=== PATIENT | female | born 1930 | race American Indian/Alaskan Native ===

== ENCOUNTER 2018-07-07 13:01 | Inpatient (IN) | payer MEDICARE ==
[2018-07-07] MEDS ORDERED: ZOFRAN ODT PO ONE (13:23)
[2018-07-07] MEDS ORDERED: ZOFRAN ODT ONE (13:23)
[2018-07-07] MEDS ORDERED: NACL 0.9% 1000 ML 1,000 ML IV ONE (13:24)
[2018-07-07 14:03] LABS: Hematocrit 36.8 % (30.3-42.9); Hemoglobin 12.5 gm/dl (10.1-14.3); Mean Corpuscular HGB Conc 34 % (30-34); Mean Corpuscular Volume 89 fl (79-97); Platelet Count 196 K/mm3 (140-440); Red Blood Count 4.15 M/mm3 (3.65-5.03); Red Cell Distribution Width 15.6 % (13.2-15.2)
[2018-07-07 14:24] LABS: Albumin 4.2 g/dL (3.9-5); Calcium 9.3 mg/dL (8.4-10.2)
[2018-07-07] MEDS ORDERED: ZOFRAN IV ONE (14:56)
[2018-07-07] MEDS ORDERED: NACL 0.9% 250ML 250 ML IV ONE (14:56)
[2018-07-07] MEDS ORDERED: PEPCID IV ONE (14:56)
[2018-07-07 14:57] LABS: Platelet Estimate Consistent w Auto; RBC Morphology Normal; Total Cells Counted 100
--- NOTE | 2018-07-07 14:57 | Emergency Department Report ---
ED General Adult HPI - General Chief complaint: Nausea/Vomiting/Diarrhea Stated complaint: N/V Time Seen by Provider: 07/07/18 14:45 Source: patient, family, RN notes reviewed Mode of arrival: Ambulatory Limitations: No Limitations, Other (patient is a poor historian) - History of Present Illness Initial comments: This is an 88-year-old female. The patient is not known to this provider previously. She cannot recall the name of her primary care doctor. She believes her oncologist is Dr. Mercedes, at [facility]. She cannot recall the name of her welfare case worker. She reports a history of hypertension, bone cancer, reportedly in remission, not currently on chemotherapy or radiation therapy. Also has a ventricular pacemaker. She is not sure why it was placed. The patient typically gets her medical care at [facility]. She presents to the emergency room with a complaint of nausea and vomiting. She thinks it started this morning. It is intermittent. It is associated with abdominal cramping. It does not radiate anywhere. She reports that she felt like she was perspiring earlier on today. She reports cough, weakness, diz ziness. She denies headache, neck pain, chest pain, and denies urinary symptoms and denies focal extremity weakness, numbness. As far she can recall, this has not happened to her in the past. -: Gradual Severity scale (0 -10): 0 Consistency: intermittent Improves with: none Worsens with: none Associated Symptoms: cough, fever/chills, loss of appetite, malaise, nausea/vomiting, weakness. denies: confusion, chest pain, diaphoresis, headaches, rash, seizure, shortness of breath, syncope - Related Data Allergies Allergy/AdvReac Type Severity Reaction Status Date / Time No Known Allergies Allergy Verified 07/07/18 13:03 ED Review of Systems ROS: Stated complaint: N/V Other details as noted in HPI Constitutional: malaise Eyes: denies: eye discharge Respiratory: cough Cardiovascular: denies: chest pain Gastrointestinal: nausea, vomiting Genitourinary: denies: dysuria Musculoskeletal: denies: back pain Skin: denies: lesions Neurological: weakness Psychiatric: anxiety ED Past Medical Hx - Past Medical History Hx Hypertension: Yes Additional medical history: bone ca- in remission now, elevated cholesterol, - Surgical History Hx Internal Defibrillator: Yes (pacemaker) - Social History Smoking Status: Never Smoker Substance Use Type: None ED Physical Exam - General Limitations: No Limitations General appearance: alert, anxious - Head Head exam: Present: atraumatic, normocephalic - Eye Eye exam: Present: normal appearance, EOMI. Absent: nystagmus - ENT ENT exam: Present: mucous membranes moist - Neck Neck exam: Present: normal inspection, full ROM. Absent: tenderness, meningismus - Respiratory Respiratory exam: Present: rhonchi (rhonchi noted in the right lower lung field). Absent: respiratory distress - Cardiovascular Cardiovascular Exam: Present: normal rhythm. Absent: bradycardia, tachycardia, irregular rhythm, diastolic murmur, rubs, gallop - GI/Abdominal GI/Abdominal exam: Present: soft, tenderness, other (there is mild abdominal tenderness, diffusely, with no rebound, guarding or peritoneal signs, there is negative Spaulding sign, there is negative Rovsing sign). Absent: distended, guarding, rebound, rigid, pulsatile mass - Extremities Exam Extremities exam: Present: normal inspection, full ROM, other (2+ pulses noted in the bilateral upper, lower extremities. Compartments soft. No long bony tenderness. The pelvis is stable.). Absent: calf tenderness - Back Exam Back exam: Present: normal inspection, full ROM. Absent: paraspinal tenderness, vertebral tenderness - Neurological Exam Neurological exam: Present: alert, other (Extraocular movements intact. Tongue midline. No facial droop. Facial sensation intact to light touch in the V1, V2, V3 distribution bilaterally. 5 and 5 strength in 4 extremities.. Sensation is intact to light touch in 4 extremities.). Absent: motor sensory deficit - Psychiatric Psychiatric exam: Present: anxious - Skin Skin exam: Present: warm, dry, intact, normal color. Absent: rash ED Course Vital Signs 07/07/18 07/07/18 07/07/18 13:19 14:53 14:58 Temperature 97.8 F 97.5 F L Pulse Rate 64 83 77 Pulse Rate [ Anterior Bilateral Throughout] Respiratory 20 19 16 Rate Respiratory Rate [Anterior Bilateral Throughout] Blood Pressure 191/95 188/104 Blood Pressure 148/83 [Left] O2 Sat by Pulse 100 94 93 Oximetry 07/07/18 07/07/18 16:55 17:54 Temperature Pulse Rate 84 Pulse Rate [ 86 Anterior Bilateral Throughout] Respiratory 19 Rate Respiratory 22 Rate [Anterior Bilateral Throughout] Blood Pressure Blood Pressure 172/92 [Left] O2 Sat by Pulse 100 Oximetry - Reevaluation(s) Reevaluation #1: 07/07/18 15:39 Differential diagnosis, including not limited to: Intra-abdominal infection, pneumonia, urinary tract infection, acute coronary syndrome, intracranial lesion, deconditioning, GERD, gastritis Assessment and plan: 88-year-old female, complaint of weakness, nausea, vomiting. Patient is afebrile and hypertensive, although now improved. We will attempt to obtain old medical records from [facility], we have sent a faxed request for these medical records, and we are still waiting for them to arrive. We will obtain urinalysis, rectal temperature, CT scan of the abdomen and pelvis, and brain. We will reassess after data points have resulted. Question early pneumonia on x-ray the chest, may be related to technique, this should be better visualized on CT scan of the abdomen and pelvis, which showed visualized the lung bases. Reevaluation #2: 07/07/18 16:[address] scan right now. [facility] indicates they do not not have any records for this patient. Reevaluation #3: 07/07/18 17:09 CT scan of the brain is negative for acute disease. X-ray of the chest interpreted formally for emphysematous changes. Patient had CT scan of the abdomen and pelvis. After she got back, she apparently desaturated, began to complain of weakness, and shortness of breath. She was found to be hypoxic with a pulse ox in the 70s. Placed on a nonrebreather, improved to the mid 80s. Started on BiPAP therapy, O2 sat improved to 95%. Given albuterol, Atrovent and steroids. Tolerating BiPAP adequately at this time. Dr. Valladares to admit for presumed COPD exacerbation, nausea, vomiting, weakness. Extensive discussion however patient's family. They currently do not have goals of care in place. They do not have advanced directives. They are amenable to hospitalization. The patient's primary care doctor/welfare case worker recently . He was at [facility]. As per family, patient was medical care, between [facility], and [facility] at [facility] Reevaluation #4: 07/07/18 19:56 Patient look improved on BiPAP therapy. ED Medical Decision Making - Lab Data Result diagrams: 07/07/18 13:39 07/07/18 13:39 Vital Signs 07/07/18 07/07/18 13:19 14:58 Temperature 97.8 F 97.5 F L Pulse Rate 64 77 Respiratory 20 16 Rate Blood Pressure 191/95 Blood Pressure 148/83 [Left] O2 Sat by Pulse 100 93 Oximetry Lab Results 07/07/18 07/07/18 Range/Units 13:39 13:39 WBC 13.3 H (4.5-11.0) K/mm3 RBC 4.15 (3.65-5.03) M/mm3 Hgb 12.5 (10.1-14.3) gm/dl Hct 36.8 (30.3-42.9) % MCV 89 (79-97) fl MCH 30 (28-32) pg MCHC 34 (30-34) % RDW 15.6 H (13.2-15.2) % Plt Count 196 (140-440) K/mm3 Eos % (Auto) Client Hr Manager Add Manual Diff Complete Total Counted 100 Seg Neuts % (Manual) 62.0 (40.0-70.0) % Band Neutrophils % 0 % Lymphocytes % (Manual) 31.0 (13.4-35.0) % Reactive Lymphs % (Man) 0 % Monocytes % (Manual) 2.0 (0.0-7.3) % Eosinophils % (Manual) 3.0 (0.0-4.3) % Basophils % (Manual) 2.0 H (0.0-1.8) % Metamyelocytes % 0 % Myelocytes % 0 % Promyelocytes % 0 % Blast Cells % 0 % Nucleated RBC % Not Reportable Seg Neutrophils # Man 8.2 H (1.8-7.7) K/mm3 Band Neutrophils # 0.0 K/mm3 Lymphocytes # (Manual) 4.1 (1.2-5.4) K/mm3 Abs React Lymphs (Man) 0.0 K/mm3 Monocytes # (Manual) 0.3 (0.0-0.8) K/mm3 Eosinophils # (Manual) 0.4 (0.0-0.4) K/mm3 Basophils # (Manual) 0.3 H (0.0-0.1) K/mm3 Metamyelocytes # 0.0 K/mm3 Myelocytes # 0.0 K/mm3 Promyelocytes # 0.0 K/mm3 Blast Cells # 0.0 K/mm3 WBC Morphology Not Reportable Hypersegmented Neuts Not Reportable Hyposegmented Neuts Not Reportable Hypogranular Neuts Not Reportable Smudge Cells Not Reportable Toxic Granulation Not Reportable Toxic Vacuolation Not Reportable Dohle Bodies Not Reportable Pelger-Huet Anomaly Not Reportable Jesse Rods Not Reportable Platelet Estimate Consistent w auto Clumped Platelets Not Reportable Plt Clumps, EDTA Not Reportable Large Platelets Not Reportable Giant Platelets Not Reportable Platelet Satelliting Not Reportable Plt Morphology Comment Not Reportable RBC Morphology Normal Dimorphic RBCs Not Reportable Polychromasia Not Reportable Hypochromasia Not Reportable Poikilocytosis Not Reportable Anisocytosis Not Reportable Microcytosis Not Reportable Macrocytosis Not Reportable Spherocytes Not Reportable Pappenheimer Bodies Not Reportable Sickle Cells Not Reportable Target Cells Not Reportable Tear Drop Cells Not Reportable Ovalocytes Not Reportable Helmet Cells Not Reportable Vazquez-Owasso Bodies Not Reportable [place] Rings Not Reportable Neel Cells Not Reportable Bite Cells Not Reportable Crenated Cell Not Reportable Elliptocytes Not Reportable Acanthocytes (Spur) Not Reportable Rouleaux Not Reportable Hemoglobin C Crystals Not Reportable Schistocytes Not Reportable Malaria parasites Not Reportable Howard Bodies Not Reportable Hem Pathologist Commnt No Sodium 137 (137-145) mmol/L Potassium 4.6 (3.6-5.0) mmol/L Chloride 101.3 (98-107) mmol/L Carbon Dioxide 29 (22-30) mmol/L Anion Gap 11 mmol/L BUN 15 (7-17) mg/dL Creatinine 0.9 (0.7-1.2) mg/dL Estimated GFR 59 ml/min BUN/Creatinine Ratio 17 % Glucose 159 H (65-100) mg/dL Calcium 9.3 (8.4-10.2) mg/dL Total Bilirubin 0.40 (0.1-1.2) mg/dL AST 20 (5-40) units/L ALT 13 (7-56) units/L Alkaline Phosphatase 53 (35-129) units/L Total Protein 7.6 (6.3-8.2) g/dL Albumin 4.2 (3.9-5) g/dL Albumin/Globulin Ratio 1.2 % Lipase 27 (13-60) units/L - EKG Data -: EKG Interpreted by Me - EKG Data When compared to previous EKG there are: previous EKG unavailable 07/07/18 15:40 This is a ventricular paced rhythm, with an extreme right axis deviation, good ventricular capture, QTC prolonged, not having chest pain, not consistent with ST elevation myocardial infarction. There is no prior for comparison - Radiology Data Radiology results: report reviewed, image reviewed interpreted by me: X-ray of the chest shows hyperinflated lungs, left-sided ventricular pacer, question early right peripheral pneumonia Print Report Referring Physician: ODALIS BRANDON Patient Name: CECILIA CALIXTO Date of : 1930 Sex: Female Report Date: 2018-07-07 Report Status: Finalized Findings [facility] [address] [place] [address] Cat Scan Report Signed Patient: CECILIA CALIXTO MR#: [id number] : 1930 Acct:[id number] Age/Sex: 88 / F ADM Date: 07/07/18 Loc: ED Attending Dr: Ordering Physician: ODALIS BRANDON MD Date of Service: 07/07/18 Procedure(s): CT abdomen pelvis w con Accession Number(s): [id number] cc: ODALIS BRANDON MD PROCEDURE: CT ABDOMEN PELVIS W CON TECHNIQUE: Computerized axial tomography of the abdomen and pelvis was performed without intravenous contrast. This study is performed without intravascular contrast material and its sensitivity for abdominal and pelvic pathology, including neoplasms, inflammation, abscess, free fluid, thrombosis, arterial dissection and infarction, is reduced compared with a contrast enhanced study. HISTORY: abd pain n/v COMPARISONS: None . FINDINGS: Lower Lung franco: There are diffuse groundglass densities seen in both lower lobes. This is fairly extensive. I cannot exclude infiltrates edema or fibrosis. There is irregular pleural thickening on the right. On image #1 series 181 there is a oval nodular density seen adjacent to the major fissure. This measures approximately 1.5 cm cyst. The entire nodule is not visualized. It could represent loculated fluid in the major fissure. A small mass cannot be excluded. There are linear bands of at electasis or scarring seen in the right middle lobe. Cardiac leads visualized in the right side of the heart. Upper Abdomen: Calcified granulomas are scattered in the liver and spleen. Small hiatal hernia is visualized. The adrenal glands are unremarkable. The pancreas appears atrophied and otherwise unremarkable. Kidneys, Ureters and Urinary bladder: There is moderate irregular thinning of the renal cortex of the third right kidney suggesting a parenchymal scar. Subcentimeter renal cortical cysts appear to be visualized bilaterally. No definite solid masses are seen. No renal calculi are visualized. There is no hydronephrosis or ureteral calculi identified. The urinary bladder is unremarkab le. Retroperitoneum: Atherosclerotic changes are seen in the abdominal aorta. No aneurysm is visualized. Nonspecific subcentimeter lymph nodes are seen in the retroperitoneum. No pathologically enlarged lymph nodes are identified. Bowel: Minimal ascites collected in the lower pelvis posteriorly. I do not see evidence of bowel obstruction. No focal bowel abnormalities are identified. Normal-appearing appendix is seen in the right lower quadrant. There is mild hazy increased density in the mesentery in the upper abdomen. There is a thin band of increased density surrounding the hazy density. There are a few nonspecific subcentimeter lymph nodes visualized. The appearance suggests mesenteric adenitis. This is visualized on images 71-104 series 4 axial image. Reproductive organs: Uterus is surgically absent. No abnormal adnexal masses are identified. Other: No acute bone abnormalities are identified. Degenerative changes are seen in the upper lumbar spine. Contrast is seen refluxing into the inferior vena cava and intrahepatic veins. This can be seen with right heart strain, congestive failure and tricuspid insufficiency. IMPRESSION: Hazy groundglass density seen fairly extensively in the lower lobes as described. Please see above comments. Nodular density partially visualized in the region of the major fissure on the right. This could represent loculated fluid in the major fissure. I cannot exclude a solid mass. This is only partially visualized. Consider follow-up CT scan of the chest. There is additional irregular mild pleural plaquing right lower lung field laterally. Pa cemaker leads visualized right side of the heart. Small hiatal hernia is visualized. Mesenteric adenitis suspected upper abdomen as described. Prior granulomatous disease. Small cortical scar visualized right kidney. Small renal cortical cysts are also visualized. Prior hysterectomy. Minimal ascites visualized. This document is electronically signed by Ahmet Phillips MD., July 07 2018 06:08:14 PM ET Transcribed By: RED Dictated By: AHMET PHILLIPS MD Electronically Authenticated By: AHMET PHILLIPS MD Signed Date/Time: 07/07/18 1810 DD/ 1632 TD/TT: 07/07/18 1632 Repeat x-ray of the chest shows worsening pneumonia nt Report Referring Physician: ODALIS BRANDON Patient Name: CECILIA CALIXTO Date of : 1930 Sex: Female Report Date: 2018-07-07 Report Status: Finalized Findings [facility] [address] [place] [address] XRay Report Signed Patient: CECILIA CALIXTO MR#: [id number] : 1930 Acct:[id number] Age/Sex: 88 / F ADM Date: 07/07/18 Loc: ED Attending Dr: Ordering Physician: ODALIS BRANDON MD Date of Service: 07/07/18 Procedure(s): XR chest 1V ap Accession Number(s): [id number] cc: ODALIS BRANDON MD Fluoro Time In Minutes: PROCEDURE: XR CHEST 1V AP TECHNIQUE: Chest single AP HISTORY: repeatfor cp COMPARISONS: Correlated with today's earlier exam FINDINGS: There is increasing opacity within the right lower lobe distribution. Cardiac and mediastinal contours are unchanged. Mild blunting of the right costophrenic angle noted. Pacemaker/AICD noted. Pulmonary vasculature is unremarkable. IMPRESSION: Right lower lobe infiltrate increasing from prior exam. This document is electronically signed by David Alvares MD., July 07 2018 06:32:07 PM ET Transcribed By: ELLIOT Dictated By: JUSTIN ALVARES MD Electronically Authenticated By: JUSTIN ALVARES MD Signed Date/Time: 07/07/18 1834 DD/ 57 TD/TT: 07/07/181758 Critical Care Time: Yes Critical care time in (mins) excluding proc time.: 60 Critical care attestation.: If time is entered above; I have spent that time in minutes in the direct care of this critically ill patient, excluding procedure time. ED Disposition Clinical Impression: Nausea and vomiting Respiratory failure Qualifiers: Chronicity: acute Respiratory failure complication: hypoxia Qualified Code(s): J96.01 - Acute respiratory failure with hypoxia Disposition: DC-09 OP ADMIT IP TO THIS HOSP Is pt being admited?: Yes Condition: Fair
[2018-07-07 16:13] LABS: Bilirubin,Urine NEG (Negative); Blood,Urine NEG (Negative); Color,Urine Yellow (Yellow); Urobilinogen,Urine < 2.0 mg/dL (<2.0); WBC,Urine < 1.0 /HPF (0.0-6.0)
--- NOTE | 2018-07-07 16:30 | XRay Report ---
PROCEDURE: Chest. TECHNIQUE: Portable AP view. HISTORY: Weakness, rhonchi. COMPARISONS: None. FINDINGS: The heart size is normal. There is mild tortuosity of the thoracic aorta. The lungs are clear except for previous granulomatous disease. There is hyperinflation of the lungs consistent with COPD. There are no pleural effusions. There is a left-sided AICD device. There is some deformity of the right six th rib suggesting an old fracture. IMPRESSION: COPD. This document is electronically signed by Nestor Bravo MD., July 07 2018 04:28:21 PM ET
--- NOTE | 2018-07-07 16:38 | Cat Scan Report ---
PROCEDURE: CT HEAD/BRAIN WO CON TECHNIQUE: CT examination of the head without IV contrast HISTORY: dizzy weak n/v COMPARISONS: None FINDINGS: Cerebrovascular atherosclerotic calcification is present in the skull base arteries. No acute air-fluid level visualized in the included air-filled sinuses. Bone windows demonstrate no acute fracture. There is ventricular and sulcal prominence compatible with global cerebrocortical atrophy. Low attenuation regions in the cerebral white matter, while nonspecific, are present and usually attr ibuted to chronic ischemic gliosis. It can occur secondary to the normal aging process, hypertension, or arterial sclerotic vascular dise ase. The differential includes demyelination in the appropriate clinical setting. The brain contains no mass, mass effect, hemorrhage, or acute infarct. There is no extra-axial intracranial bleed or brain bleed. There is no midline shift. IMPRESSION: No acute CVA, intracranial bleed, or brain mass This document is electronically signed by Mariano Resendez MD., July 07 2018 04:36:50 PM ET
[2018-07-07] MEDS ORDERED: PROVENTIL IH ONE ×2 (16:45→16:47)
[2018-07-07] MEDS ORDERED: ATROVENT IH ONE (16:47)
[2018-07-07] MEDS ORDERED: SOLU-Medrol IV ONE (16:47)
--- NOTE | 2018-07-07 17:27 | History and Physical Report ---
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 Pt is lethargic at time of exam and is unable to provide history. Pt history provided by her , and family who are at bedside during exam and interview. As per family, the patient has experienced nausea, and multiple episodes of vomiting today. Pt family also report diaphoresis, and feeling weak all over. Pt family also reports that patient has bed stressed recently due to Pt transported to [facility] via private vehicle. Pt seen and evaluated in ED and found to have SIRS, Acidosis, And Acute Respiratory Failure suspected secondary to COPD exacerbation,as well as Encephalopathy. Pt is lethargic but is able to protect her airway. Pt initiated on NIPPV with improvement in symptoms. Pt admitted to IMCU. No prior admissions for review. No prior medication listed for reconciliation at time of exam. CT Abdomen/Pelvis pending at time of admission. Discussed care plan with family who acknowledge both understanding and agreement with plan. Oncology consulted in ED. Medical Records request for the patient sent to [facility] from ED. Past History Past Medical History: cancer, hypertension, hyperlipidemia, other (Cardiomyopathy) Past Surgical History: hysterectomy, Other (pacemaker) Social history: , lives with family. denies: smoking, alcohol abuse, prescription drug abuse Family history: hypertension Medications and Allergies Allergies Allergy/AdvReac Type Severity Reaction Status Date / Time No Known Allergies Allergy Verified 07/07/18 13:03 Review of Systems ROS unobtainable: due to mental status Exam - Constitutional Vitals: Temp Pulse Resp BP Pulse Ox 97.5 F L 86 22 148/83 93 07/07/18 14:58 07/07/18 16:55 07/07/18 16:55 07/07/18 14:58 07/07/18 14:58 General appearance: Present: mild distress - EENT Eyes: Present: PERRL ENT: hearing intact, clear oral mucosa - Neck Neck: Present: supple, normal ROM - Respiratory Respiratory effort: labored Respiratory: bilateral: diminished, rhonchi - Cardiovascular Heart Sounds: Present: S1 & S2. Absent: rub, click - Extremities Extremities: pulses symmetrical, No edema Peripheral Pulses: within normal limits - Abdominal General gastrointestinal: Present: soft, non-tender, non-distended, normal bowel sounds Female genitourinary: Present: normal - Integumentary Integumentary: Present: clear, warm, dry - Musculoskeletal Musculoskeletal: generalized weakness - Psychiatric Psychiatric: no appropriate mood/affect, no intact judgment & insight, no memory intact - Neurologic Neurologic: CNII-XII intact, no focal deficits, moves all extremities, no gait normal Results - Labs CBC & Chem 7: 07/07/18 13:39 07/07/18 13:39 Labs: Abnormal lab results 07/07/18 07/07/18 07/07/18 Range/Units 13:39 13:39 15:26 WBC 13.3 H (4.5-11.0) K/mm3 RDW 15.6 H (13.2-15.2) % Basophils % (Manual) 2.0 H (0.0-1.8) % Seg Neutrophils # Man 8.2 H (1.8-7.7) K/mm3 Basophils # (Manual) 0.3 H (0.0-0.1) K/mm3 Glucose 159 H (65-100) mg/dL Lactic Acid 2.10 H* (0.7-2.0) mmol/L Assessment and Plan - Patient Problems (1) Respiratory failure Current Visit: Yes Status: Acute Qualifiers: Chronicity: acute Respiratory failure complication: hypoxia Qualified Code(s): J96.01 - Acute respiratory failure with hypoxia Plan to address problem: Admit to IMCU: chest x ray, d dimer, bnp, pulse oximetry, ABG, supplemental oxygen, nebulizer therapy, pulmonary toilet, (2) COPD exacerbation Current Visit: Yes Status: Acute Plan to address problem: IV steroid therapy, supplemental oxygen, chest x ray, nebulizer therapy, pulse oximetry, ABG, d dimer, (3) Acidosis Current Visit: Yes Status: Acute Plan to address problem: IVF resuscitation, repeat lactic acid in AM. (4) SIRS (systemic inflammatory response syndrome) Current Visit: Yes Status: Acute Plan to address problem: CBC, CMP, IV antibiotic therapy, Lactic acid level, IVF resuscitation therapy, chest x ray, urialysis, blood cultures (5) Encephalopathy Current Visit: Yes Status: Acute Plan to address problem: CT head, neuro checks, seizure precautions, aspiration precautions, fall precautions, (6) Osteosarcoma Current Visit: Yes Status: Acute Plan to address problem: Oncology consulted, supportive care, (7) DVT prophylaxis Current Visit: Yes Status: Acute Plan to address problem: SCD to BLE while in bed, Prophylactic lovenox.
[2018-07-07] MEDS ORDERED: LEVAQUIN 500MG/100ML 500 MG/100 ML BAG IV ONE (17:52)
[2018-07-07] MEDS ORDERED: SODIUM CHLORIDE FLUSH SYRINGE 10 ML IV PRN (18:04)
[2018-07-07] MEDS ORDERED: PROVENTIL IH PRN (18:04)
--- NOTE | 2018-07-07 18:10 | Cat Scan Report ---
PROCEDURE: CT ABDOMEN PELVIS W CON TECHNIQUE: Computerized axial tomography of the abdomen and pelvis was performed without intravenous contrast. This study is performed without intravascular contrast material and its sensitivity for ab dominal and pelvic pathology, including neoplasms, inflammation, abscess, free fluid, thrombosis, art erial dissection and infarction, is reduced compared with a contrast enhanced study. HISTORY: abd pain n/v COMPARISONS: None . FINDINGS: Lower Lung franco: There are diffuse groundglass densities seen in both lower lobes. This is fairly extensive. I cannot exclude infiltrates edema or fibrosis. There is irregular pleural thickening on t he right. On image #1 series 181 there is a oval nodular density seen adjacent to the major fissure. This measures approximately 1.5 cm cyst. The entire nodule is not visualized. It could represent locu lated fluid in the major fissure. A small mass cannot be excluded. There are linear bands of atelecta sis or scarring seen in the right middle lobe. Cardiac leads visualized in the right side of the hear t. Upper Abdomen: Calcified granulomas are scattered in the liver and spleen. Small hiatal hernia is vi sualized. The adrenal glands are unremarkable. The pancreas appears atrophied and otherwise unremarka ble. Kidneys, Ureters and Urinary bladder: There is moderate irregular thinning of the renal cortex of th e third right kidney suggesting a parenchymal scar. Subcentimeter renal cortical cysts appear to be v isualized bilaterally. No definite solid masses are seen. No renal calculi are visualized. There is n o hydronephrosis or ureteral calculi identified. The urinary bladder is unremarkable. Retroperitoneum: Atherosclerotic changes are seen in the abdominal aorta. No aneurysm is visualized. Nonspecific subcentimeter lymph nodes are seen in the retroperitoneum. No pathologically enlarged ly mph nodes are identified. Bowel: Minimal ascites collected in the lower pelvis posteriorly. I do not see evidence of bowel obs truction. No focal bowel abnormalities are identified. Normal-appearing appendix is seen in the right lower quadrant. There is mild hazy increased density in the mesentery in the upper abdomen. There is a thin band of increased density surrounding the hazy density. There are a few nonspecific subcentim eter lymph nodes visualized. The appearance suggests mesenteric adenitis. This is visualized on image s [id number] series 4 axial image. Reproductive organs: Uterus is surgically absent. No abnormal adnexal masses are identified. Other: No acute bone abnormalities are identified. Degenerative changes are seen in the upper lumbar spine. Contrast is seen refluxing into the inferior vena cava and intrahepatic veins. This can be seen with right heart strain, congestive failure and tricuspid insufficiency. IMPRESSION: Hazy groundglass density seen fairly extensively in the lower lobes as described. Please see above co mments. Nodular density partially visualized in the region of the major fissure on the right. This could repr esent loculated fluid in the major fissure. I cannot exclude a solid mass. This is only partially vis ualized. Consider follow-up CT scan of the chest. There is additional irregular mild pleural plaquing right lower lung field laterally. Pacemaker leads visualized right side of the heart. Small hiatal hernia is visualized. Mesenteric adenitis suspected upper abdomen as described. Prior granulomatous disease. Small cortical scar visualized right kidney. Small renal cortical cysts are also visualized. Prior hysterectomy. Minimal ascites visualized. This document is electronically signed by Ahmet Leija MD., July 07 2018 06:08:14 PM ET
--- NOTE | 2018-07-07 18:34 | XRay Report ---
PROCEDURE: XR CHEST 1V AP TECHNIQUE: Chest single AP HISTORY: repeatfor cp COMPARISONS: Correlated with today's earlier exam FINDINGS: There is increasing opacity within the right lower lobe distribution. Cardiac and mediastinal contour s are unchanged. Mild blunting of the right costophrenic angle noted. Pacemaker/AICD noted. Pulmonary vasculature is unremarkable. IMPRESSION: Right lower lobe infiltrate increasing from prior exam. This document is electronically signed by David Alvares MD., July 07 2018 06:32:07 PM ET
[2018-07-07 19:46] LABS: Free T4 (Free Thyroxine) 0.95 ng/dL (0.76-1.46)
[2018-07-07] MEDS ORDERED: APRESOLINE IV PRN (21:26)
[2018-07-07] MEDS ORDERED: APRESOLINE ONE (21:31)
[2018-07-07] MEDS: ZITHROMAX 500 MG in NACL 0.9% 250ML 250 ML IV SCH (23:28)
[2018-07-07] MEDS: LOVENOX SUB-Q SCH (23:28)
[2018-07-07] MEDS: SODIUM CHLORIDE FLUSH SYRINGE 10 ML IV SCH (23:29)
[2018-07-08] MEDS: ZITHROMAX 500 MG in NACL 0.9% 250ML 250 ML IV SCH ×2 (10:33→15:39)
[2018-07-08] MEDS: SODIUM CHLORIDE FLUSH SYRINGE 10 ML IV SCH ×2 (10:34→21:12)
[2018-07-08] MEDS ORDERED: ZOFRAN IV PRN (12:20)
[2018-07-08] MEDS ORDERED: LASIX IV ONE (12:24)
--- NOTE | 2018-07-08 12:25 | Progress Note ---
Assessment and Plan Assessment and plan: 88F who pw n/v and deann hand oncologist is Dr Mercedes at [facility] Past medical history of bone cancer in remission, htn, sp v-PM, HLD Labs; white count 13 lactic acid 2.1, repeats after IV fluids 1.4, BNP 4000 and, d-dimer 491, ABG shows a PCO2 of 48, UA negative CT A/P; GG nodular densities in lower lobes of lungs, mesenteric adenitis is suspected in upper abdomen, repeat CXR; RLL infiltrate diagnosis/plan n/v; acute gastroenteritis -ivf, anti-emetics Pulmonary sepsis , PNA- antibiotics, COPD -d dimer elevated; obtain CTA to eval for PE and to look at bibasilar opacities CHF? give one dose of lasix, obtain echo sepsis with organ dysfunction acute metabolic encephalpathy dvt ppx- chemical History Interval history: Review of systems Constitutional: No fevers, no malaise, no joint pains CVS: No chest pain, no orthopnea, no dyspnea on exertion, no pedal edema GI: No abdominal pain, no diarrhea, no vomiting, no constipation Respiratory: No shortness of breath, no wheezing, no coughing Hospitalist Physical - Physical exam Narrative exam: General.: Appears well, no distress, nontoxic HEENT: Moist mucous membranes, extraocular muscles intact, no lymphadenopathy Neck: supple Cardiac: S1-S2 heard Lungs: By basilar Rales Abdomen: soft , nontender, nondistended, bowel sounds positive Extremities: no edema clubbing or cyanosis Skin: no rash or lesions Neurologic: no gross focal deficits Psych: calm, and cooperative - Constitutional Vitals: Temp Pulse Resp BP Pulse Ox 98.1 F 79 17 102/51 98 07/08/18 12:00 07/08/18 09:00 07/08/18 09:00 07/08/18 04:00 07/08/18 09:00 General appearance: Present: mild distress Results - Labs CBC & Chem 7: 07/07/18 13:39 07/07/18 13:39 Labs: Laboratory Last Values WBC 13.3 K/mm3 (4.5-11.0) H 07/07/18 13:39 RBC 4.15 M/mm3 (3.65-5.03) 07/07/18 13:39 Hgb 12.5 gm/dl (10.1-14.3) 07/07/18 13:39 Hct 36.8 % (30.3-42.9) 07/07/18 13:39 MCV 89 fl (79-97) 07/07/18 13:39 MCH 30 pg (28-32) 07/07/18 13:39 MCHC 34 % (30-34) 07/07/18 13:39 RDW 15.6 % (13.2-15.2) H 07/07/18 13:39 Plt Count 196 K/mm3 (140-440) 07/07/18 13:39 Eos % (Auto) Manager Drug 07/07/18 13:39 Add Manual Diff Complete 07/07/18 13:39 Total Counted 100 07/07/18 13:39 Seg Neuts % (Manual) 62.0 % (40.0-70.0) 07/07/18 13:39 Band Neutrophils % 0 % 07/07/18 13:39 Lymphocytes % (Manual) 31.0 % (13.4-35.0) 07/07/18 13:39 Reactive Lymphs % (Man) 0 % 07/07/18 13:39 Monocytes % (Manual) 2.0 % (0.0-7.3) 07/07/18 13:39 Eosinophils % (Manual) 3.0 % (0.0-4.3) 07/07/18 13:39 Basophils % (Manual) 2.0 % (0.0-1.8) H 07/07/18 13:39 Metamyelocytes % 0 % 07/07/18 13:39 Myelocytes % 0 % 07/07/18 13:39 Promyelocytes % 0 % 07/07/18 13:39 Blast Cells % 0 % 07/07/18 13:39 Nucleated RBC % Not Reportable 07/07/18 13:39 Seg Neutrophils # Man 8.2 K/mm3 (1.8-7.7) H 07/07/18 13:39 Band Neutrophils # 0.0 K/mm3 07/07/18 13:39 Lymphocytes # (Manual) 4.1 K/mm3 (1.2-5.4) 07/07/18 13:39 Abs React Lymphs (Man) 0.0 K/mm3 07/07/18 13:39 Monocytes # (Manual) 0.3 K/mm3 (0.0-0.8) 07/07/18 13:39 Eosinophils # (Manual) 0.4 K/mm3 (0.0-0.4) 07/07/18 13:39 Basophils # (Manual) 0.3 K/mm3 (0.0-0.1) H 07/07/18 13:39 Metamyelocytes # 0.0 K/mm3 07/07/18 13:39 Myelocytes # 0.0 K/mm3 07/07/18 13:39 Promyelocytes # 0.0 K/mm3 07/07/18 13:39 Blast Cells # 0.0 K/mm3 07/07/18 13:39 WBC Morphology Not Reportable 07/07/18 13:39 Hypersegmented Neuts Not Reportable 07/07/18 13:39 Hyposegmented Neuts Not Reportable 07/07/18 13:39 Hypogranular Neuts Not Reportable 07/07/18 13:39 Smudge Cells Not Reportable 07/07/18 13:39 Toxic Granulation Not Reportable 07/07/18 13:39 Toxic Vacuolation Not Reportable 07/07/18 13:39 Dohle Bodies Not Reportable 07/07/18 13:39 Pelger-Huet Anomaly Not Reportable 07/07/18 13:39 Jesse Rods Not Reportable 07/07/18 13:39 Platelet Estimate Consistent w auto 07/07/18 13:39 Clumped Platelets Not Reportable 07/07/18 13:39 Plt Clumps, EDTA Not Reportable 07/07/18 13:39 Large Platelets Not Reportable 07/07/18 13:39 Giant Platelets Not Reportable 07/07/18 13:39 Platelet Satelliting Not Reportable 07/07/18 13:39 Plt Morphology Comment Not Reportable 07/07/18 13:39 RBC Morphology Normal 07/07/18 13:39 Dimorphic RBCs Not Reportable 07/07/18 13:39 Polychromasia Not Reportable 07/07/18 13:39 Hypochromasia Not Reportable 07/07/18 13:39 Poikilocytosis Not Reportable 07/07/18 13:39 Anisocytosis Not Reportable 07/07/18 13:39 Microcytosis Not Reportable 07/07/18 13:39 Macrocytosis Not Reportable 07/07/18 13:39 Spherocytes Not Reportable 07/07/18 13:39 Pappenheimer Bodies Not Reportable 07/07/18 13:39 Sickle Cells Not Reportable 07/07/18 13:39 Target Cells Not Reportable 07/07/18 13:39 Tear Drop Cells Not Reportable 07/07/18 13:39 Ovalocytes Not Reportable 07/07/18 13:39 Helmet Cells Not Reportable 07/07/18 13:39 [place] Bodies Not Reportable 07/07/18 13:39 [place] Rings Not Reportable 07/07/18 13:39 Neel Cells Not Reportable 07/07/18 13:39 Bite Cells Not Reportable 07/07/18 13:39 Crenated Cell Not Reportable 07/07/18 13:39 Elliptocytes Not Reportable 07/07/18 13:39 Acanthocytes (Spur) Not Reportable 07/07/18 13:39 Rouleaux Not Reportable 07/07/18 13:39 Hemoglobin C Crystals Not Reportable 07/07/18 13:39 Schistocytes Not Reportable 07/07/18 13:39 Malaria parasites Not Reportable 07/07/18 13:39 Howard Bodies Not Reportable 07/07/18 13:39 Hem Pathologist Commnt No 07/07/18 13:39 D-Dimer 491.58 ng/mlDDU (0-234) H 07/07/18 18:53 POC ABG pH 7.336 (7.35-7.45) L 07/07/18 17:50 POC ABG pCO2 48.5 (35-45) H 07/07/18 17:50 POC ABG pO2 171 (80-105) H 07/07/18 17:50 POC ABG HCO3 26.0 (22-26 mml/L) 07/07/18 17:50 POC ABG Total CO2 27 (23-27mmol/L) 07/07/18 17:50 POC ABG O2 Sat 99 07/07/18 17:50 POC ABG Base Excess 0 ((-2) - (+3)mmol/L) 07/07/18 17:50 FiO2 70 % 07/07/18 17:50 Sodium 137 mmol/L (137-145) 07/07/18 13:39 Potassium 4.6 mmol/L (3.6-5.0) 07/07/18 13:39 Chloride 101.3 mmol/L (98-107) 07/07/18 13:39 Carbon Dioxide 29 mmol/L (22-30) 07/07/18 13:39 Anion Gap 11 mmol/L 07/07/18 13:39 BUN 15 mg/dL (7-17) 07/07/18 13:39 Creatinine 0.9 mg/dL (0.7-1.2) 07/07/18 13:39 Estimated GFR 59 ml/min 07/07/18 13:39 BUN/Creatinine Ratio 17 % 07/07/18 13:39 Glucose 159 mg/dL (65-100) H 07/07/18 13:39 Lactic Acid 1.30 mmol/L (0.7-2.0) 07/08/18 05:01 Calcium 9.3 mg/dL (8.4-10.2) 07/07/18 13:39 Magnesium 2.10 mg/dL (1.7-2.3) 07/07/18 15:26 Total Bilirubin 0.40 mg/dL (0.1-1.2) 07/07/18 13:39 AST 20 units/L (5-40) 07/07/18 13:39 ALT 13 units/L (7-56) 07/07/18 13:39 Alkaline Phosphatase 53 units/L (35-129) 07/07/18 13:39 Total Creatine Kinase 83 units/L (30-135) 07/07/18 15:26 Troponin T < 0.010 ng/mL (0.00-0.029) 07/07/18 17:25 NT-Pro-B Natriuret Pep 4455 pg/mL (0-900) H 07/07/18 18:53 Total Protein 7.6 g/dL (6.3-8.2) 07/07/18 13:39 Albumin 4.2 g/dL (3.9-5) 07/07/18 13:39 Albumin/Globulin Ratio 1.2 % 07/07/18 13:39 Lipase 27 units/L (13-60) 07/07/18 13:39 TSH 1.940 mlU/mL (0.270-4.200) 07/07/18 18:53 Free T4 0.95 ng/dL (0.76-1.46) 07/07/18 18:53 Urine Color Yellow (Yellow) 07/07/18 15:47 Urine Turbidity Clear (Clear) 07/07/18 15:47 Urine pH 6.0 (5.0-7.0) 07/07/18 15:47 Ur Specific [place] 1.020 (1.003-1.030) 07/07/18 15:47 Urine Protein 100 mg/dl mg/dL (Negative) 07/07/18 15:47 Urine Glucose (UA) 50 mg/dL (Negative) 07/07/18 15:47 Urine Ketones Tr mg/dL (Negative) 07/07/18 15:47 Urine Blood Neg (Negative) 07/07/18 15:47 Urine Nitrite Neg (Negative) 07/07/18 15:47 Urine Bilirubin Neg (Negative) 07/07/18 15:47 Urine Urobilinogen < 2.0 mg/dL (<2.0) 07/07/18 15:47 Ur Leukocyte Esterase Neg (Negative) 07/07/18 15:47 Urine WBC (Auto) < 1.0 /HPF (0.0-6.0) 07/07/18 15:47 Urine RBC (Auto) 11.0 /HPF (0.0-6.0) 07/07/18 15:47 U Epithel Cells (Auto) < 1.0 /HPF (0-13.0) 07/07/18 15:47 Active Medications - Current Medications Current Medications: Generic Name Dose Route Start Last Admin Trade Name Freq PRN Reason Stop Dose Admin Albuterol 2.5 mg 07/07/18 18:04 Proventil IH Q3HRT PRN Shortness Of Breath Enoxaparin Sodium 40 mg 07/07/18 22:00 07/07/18 23:28 Lovenox SUB-Q 40 mg QDAY@2200 NEVA Administration Hydralazine HCl 10 mg 07/07/18 21:26 07/07/18 21:35 Apresoline IV 10 mg Q4HR PRN Administration Blood Pressure Sodium Chloride 1,000 mls @ 125 mls/hr 07/08/18 13:00 Nacl 0.45% 1000 Ml IV DIRECT NEVA Ondansetron HCl 4 mg 07/08/18 12:20 Zofran IV Q4H PRN Nausea And Vomiting Sodium Chloride 10 ml 07/07/18 22:00 07/08/18 10:34 Sodium Chloride Flush Syringe 10 Ml IV 10 ml BID NEVA Administration Sodium Chloride 10 ml 07/07/18 18:04 Sodium Chloride Flush Syringe 10 Ml IV PRN PRN LINE FLUSH Nutrition/Malnutrition Assess - Dietary Evaluation Nutrition/Malnutrition Findings: Nutrition Notes Start: 07/08/18 10:28 Freq: Status: Active Protocol: Document 07/08/18 10:28 EB (Rec: 07/08/18 10:35 EB [id number]) Co-Sign 07/08/18 10:28 LP Nutrition Notes 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 Pt resting in bed at time of visit and complains of being thirsty and hungry. Pt brought to [facility] yesterday for procedure and starting vomiting while here. Since then has had N/V x7. 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 Percent of energy/protein needs met: 0%/0% Burn Absent Trauma Absent GI Symptoms Nausea,Vomiting Current % PO Negligible #1 Nutrition Diagnosis Inadequate oral intake Etiology NPO As Evidenced by Signs and Symptoms N/V x7 yesterday Is patient on ventilator? No Is Patient Ambulatory and/or Out of Bed Yes REE-([place]-St. Jeor-ambulatory/OOB) [ 1350.999 NUTR.[id number]] Kcal/Kg value to use for calculation 25 Approximate Energy Requirements Using 1588 kcal/Kg Calculation Used for Recommendations Kcal/kg Additional Notes PRO: 1-1.2 g/kg (64-77 g/day) Fluid: 1 mL/kcal Nutrition Intervention Change Diet Order: Cl liq when NPO status lifted Goal #1 Advance diet when medically feasible Goal #2 Meet at least 75% jose and pro needs Anticipated Discharge Needs: Unable to determine at this time Follow-Up By: 07/11/18 Additional Comments F/u: diet tolerance and advancement
[2018-07-08] MEDS ORDERED: PROVENTIL IH PRN (12:40)
[2018-07-08] MEDS: NACL 0.45% 1000 ML 1,000 ML IV SCH (12:54)
[2018-07-08] MEDS: SOLU-Medrol IV SCH ×2 (13:59→21:12)
[2018-07-08] MEDS: ROCEPHIN/NS 1 GM/50 ML 1 GM/50 ML BAG IV SCH (18:13)
--- NOTE | 2018-07-08 18:47 | Vascular Lab Report ---
PROCEDURE: VL VENOUS DUPLEX LE BILAT TECHNIQUE: Longitudinal and transverse grayscale, color, and Doppler sonographic images were perform ed from the bilateral groins to the infrapopliteal region HISTORY: LE edema COMPARISONS: None FINDINGS: The venous system is anechoic and fully compressible at all levels. Normal respiratory variability and augmentation. No popliteal cyst. IMPRESSION: No evidence for deep venous thrombosis bilateral lower extremity from the groins to the infrapoplitea l regions. No Alfonso's cyst.. This document is electronically signed by Carolynn Lopez MD., July 08 2018 06:45:57 PM ET
[2018-07-08] MEDS: LOVENOX SUB-Q SCH (21:11)
[2018-07-09] MEDS: NACL 0.45% 1000 ML 1,000 ML IV SCH ×2 (00:19→09:34)
[2018-07-09] MEDS: ROCEPHIN/NS 1 GM/50 ML 1 GM/50 ML BAG IV SCH (09:33)
[2018-07-09] MEDS: SOLU-Medrol IV SCH ×2 (09:34→22:43)
[2018-07-09] MEDS: SODIUM CHLORIDE FLUSH SYRINGE 10 ML IV SCH ×2 (09:39→22:43)
--- NOTE | 2018-07-09 09:59 | Progress Note ---
Assessment and Plan Assessment and plan: 88F who pw n/v and deann hand oncologist is Dr Mercedes at [facility] Past medical history of bone cancer in remission, htn, sp v-PM, HLD Labs; white count 13 lactic acid 2.1, repeats after IV fluids 1.4, BNP 4000 and, d-dimer 491, ABG shows a PCO2 of 48, UA negative CT A/P; GG nodular densities in lower lobes of lungs, mesenteric adenitis is suspected in upper abdomen, repeat CXR; RLL infiltrate diagnosis/plan n/v; acute gastrititis, self reports hx of pud -ivf, anti-emetics, PPI, gi consult Pulmonary pna and sepsis ruled out, dc abx COPD -d dimer elevated; CTA neg for PE or infiltrate, LE doppler neg for dvt CHF? sp lasix x 1, echo pending Afib sp V-PM, rate controlled acute metabolic encephalpathy- resolved dvt ppx- chemical History Interval history: Review of systems Constitutional: No fevers, no malaise, no joint pains CVS: No chest pain, no orthopnea, no dyspnea on exertion, no pedal edema GI: No abdominal pain, no diarrhea, , nuase is improved, no vomiting, no constipation Respiratory: No shortness of breath, no wheezing, no coughing Hospitalist Physical - Physical exam Narrative exam: General.: Appears well, no distress, nontoxic HEENT: Moist mucous membranes, extraocular muscles intact, no lymphadenopathy Neck: supple Cardiac: S1-S2 heard Lungs: By basilar Rales Abdomen: soft , nontender, nondistended, bowel sounds positive Extremities: no edema clubbing or cyanosis Skin: no rash or lesions Neurologic: no gross focal deficits Psych: calm, and cooperative - Constitutional Vitals: Temp Pulse Resp BP Pulse Ox 98 F 112 H 18 137/64 98 07/09/18 03:43 07/09/18 07:47 07/09/18 07:47 07/09/18 00:00 07/09/18 07:47 General appearance: Present: mild distress Results - Labs CBC & Chem 7: 07/07/18 13:39 07/07/18 13:39 Labs: Laboratory Last Values WBC 13.3 K/mm3 (4.5-11.0) H 07/07/18 13:39 RBC 4.15 M/mm3 (3.65-5.03) 07/07/18 13:39 Hgb 12.5 gm/dl (10.1-14.3) 07/07/18 13:39 Hct 36.8 % (30.3-42.9) 07/07/18 13:39 MCV 89 fl (79-97) 07/07/18 13:39 MCH 30 pg (28-32) 07/07/18 13:39 MCHC 34 % (30-34) 07/07/18 13:39 RDW 15.6 % (13.2-15.2) H 07/07/18 13:39 Plt Count 196 K/mm3 (140-440) 07/07/18 13:39 Eos % (Auto) Adjunct Professor 07/07/18 13:39 Add Manual Diff Complete 07/07/18 13:39 Total Counted 100 07/07/18 13:39 Seg Neuts % (Manual) 62.0 % (40.0-70.0) 07/07/18 13:39 Band Neutrophils % 0 % 07/07/18 13:39 Lymphocytes % (Manual) 31.0 % (13.4-35.0) 07/07/18 13:39 Reactive Lymphs % (Man) 0 % 07/07/18 13:39 Monocytes % (Manual) 2.0 % (0.0-7.3) 07/07/18 13:39 Eosinophils % (Manual) 3.0 % (0.0-4.3) 07/07/18 13:39 Basophils % (Manual) 2.0 % (0.0-1.8) H 07/07/18 13:39 Metamyelocytes % 0 % 07/07/18 13:39 Myelocytes % 0 % 07/07/18 13:39 Promyelocytes % 0 % 07/07/18 13:39 Blast Cells % 0 % 07/07/18 13:39 Nucleated RBC % Not Reportable 07/07/18 13:39 Seg Neutrophils # Man 8.2 K/mm3 (1.8-7.7) H 07/07/18 13:39 Band Neutrophils # 0.0 K/mm3 07/07/18 13:39 Lymphocytes # (Manual) 4.1 K/mm3 (1.2-5.4) 07/07/18 13:39 Abs React Lymphs (Man) 0.0 K/mm3 07/07/18 13:39 Monocytes # (Manual) 0.3 K/mm3 (0.0-0.8) 07/07/18 13:39 Eosinophils # (Manual) 0.4 K/mm3 (0.0-0.4) 07/07/18 13:39 Basophils # (Manual) 0.3 K/mm3 (0.0-0.1) H 07/07/18 13:39 Metamyelocytes # 0.0 K/mm3 07/07/18 13:39 Myelocytes # 0.0 K/mm3 07/07/18 13:39 Promyelocytes # 0.0 K/mm3 07/07/18 13:39 Blast Cells # 0.0 K/mm3 07/07/18 13:39 WBC Morphology Not Reportable 07/07/18 13:39 Hypersegmented Neuts Not Reportable 07/07/18 13:39 Hyposegmented Neuts Not Reportable 07/07/18 13:39 Hypogranular Neuts Not Reportable 07/07/18 13:39 Smudge Cells Not Reportable 07/07/18 13:39 Toxic Granulation Not Reportable 07/07/18 13:39 Toxic Vacuolation Not Reportable 07/07/18 13:39 Dohle Bodies Not Reportable 07/07/18 13:39 Pelger-Huet Anomaly Not Reportable 07/07/18 13:39 Jesse Rods Not Reportable 07/07/18 13:39 Platelet Estimate Consistent w auto 07/07/18 13:39 Clumped Platelets Not Reportable 07/07/18 13:39 Plt Clumps, EDTA Not Reportable 07/07/18 13:39 Large Platelets Not Reportable 07/07/18 13:39 Giant Platelets Not Reportable 07/07/18 13:39 Platelet Satelliting Not Reportable 07/07/18 13:39 Plt Morphology Comment Not Reportable 07/07/18 13:39 RBC Morphology Normal 07/07/18 13:39 Dimorphic RBCs Not Reportable 07/07/18 13:39 Polychromasia Not Reportable 07/07/18 13:39 Hypochromasia Not Reportable 07/07/18 13:39 Poikilocytosis Not Reportable 07/07/18 13:39 Anisocytosis Not Reportable 07/07/18 13:39 Microcytosis Not Reportable 07/07/18 13:39 Macrocytosis Not Reportable 07/07/18 13:39 Spherocytes Not Reportable 07/07/18 13:39 Pappenheimer Bodies Not Reportable 07/07/18 13:39 Sickle Cells Not Reportable 07/07/18 13:39 Target Cells Not Reportable 07/07/18 13:39 Tear Drop Cells Not Reportable 07/07/18 13:39 Ovalocytes Not Reportable 07/07/18 13:39 Helmet Cells Not Reportable 07/07/18 13:39 Vaz[place] Bodies Not Reportable 07/07/18 13:39 [place] Rings Not Reportable 07/07/18 13:39 [place] Cells Not Reportable 07/07/18 13:39 Bite Cells Not Reportable 07/07/18 13:39 Crenated Cell Not Reportable 07/07/18 13:39 Elliptocytes Not Reportable 07/07/18 13:39 Acanthocytes (Spur) Not Reportable 07/07/18 13:39 Rouleaux Not Reportable 07/07/18 13:39 Hemoglobin C Crystals Not Reportable 07/07/18 13:39 Schistocytes Not Reportable 07/07/18 13:39 Malaria parasites Not Reportable 07/07/18 13:39 Howard Bodies Not Reportable 07/07/18 13:39 Hem Pathologist Commnt No 07/07/18 13:39 D-Dimer 491.58 ng/mlDDU (0-234) H 07/07/18 18:53 POC ABG pH 7.336 (7.35-7.45) L 07/07/18 17:50 POC ABG pCO2 48.5 (35-45) H 07/07/18 17:50 POC ABG pO2 171 (80-105) H 07/07/18 17:50 POC ABG HCO3 26.0 (22-26 mml/L) 07/07/18 17:50 POC ABG Total CO2 27 (23-27mmol/L) 07/07/18 17:50 POC ABG O2 Sat 99 07/07/18 17:50 POC ABG Base Excess 0 ((-2) - (+3)mmol/L) 07/07/18 17:50 FiO2 70 % 07/07/18 17:50 Sodium 137 mmol/L (137-145) 07/07/18 13:39 Potassium 4.6 mmol/L (3.6-5.0) 07/07/18 13:39 Chloride 101.3 mmol/L (98-107) 07/07/18 13:39 Carbon Dioxide 29 mmol/L (22-30) 07/07/18 13:39 Anion Gap 11 mmol/L 07/07/18 13:39 BUN 15 mg/dL (7-17) 07/07/18 13:39 Creatinine 0.9 mg/dL (0.7-1.2) 07/07/18 13:39 Estimated GFR 59 ml/min 07/07/18 13:39 BUN/Creatinine Ratio 17 % 07/07/18 13:39 Glucose 159 mg/dL (65-100) H 07/07/18 13:39 Lactic Acid 1.30 mmol/L (0.7-2.0) 07/08/18 05:01 Calcium 9.3 mg/dL (8.4-10.2) 07/07/18 13:39 Magnesium 2.10 mg/dL (1.7-2.3) 07/07/18 15:26 Total Bilirubin 0.40 mg/dL (0.1-1.2) 07/07/18 13:39 AST 20 units/L (5-40) 07/07/18 13:39 ALT 13 units/L (7-56) 07/07/18 13:39 Alkaline Phosphatase 53 units/L (35-129) 07/07/18 13:39 Total Creatine Kinase 83 units/L (30-135) 07/07/18 15:26 Troponin T < 0.010 ng/mL (0.00-0.029) 07/07/18 17:25 NT-Pro-B Natriuret Pep 4455 pg/mL (0-900) H 07/07/18 18:53 Total Protein 7.6 g/dL (6.3-8.2) 07/07/18 13:39 Albumin 4.2 g/dL (3.9-5) 07/07/18 13:39 Albumin/Globulin Ratio 1.2 % 07/07/18 13:39 Lipase 27 units/L (13-60) 07/07/18 13:39 TSH 1.940 mlU/mL (0.270-4.200) 07/07/18 18:53 Free T4 0.95 ng/dL (0.76-1.46) 07/07/18 18:53 Urine Color Yellow (Yellow) 07/07/18 15:47 Urine Turbidity Clear (Clear) 07/07/18 15:47 Urine pH 6.0 (5.0-7.0) 07/07/18 15:47 Ur Specific [place] 1.020 (1.003-1.030) 07/07/18 15:47 Urine Protein 100 mg/dl mg/dL (Negative) 07/07/18 15:47 Urine Glucose (UA) 50 mg/dL (Negative) 07/07/18 15:47 Urine Ketones Tr mg/dL (Negative) 07/07/18 15:47 Urine Blood Neg (Negative) 07/07/18 15:47 Urine Nitrite Neg (Negative) 07/07/18 15:47 Urine Bilirubin Neg (Negative) 07/07/18 15:47 Urine Urobilinogen < 2.0 mg/dL (<2.0) 07/07/18 15:47 Ur Leukocyte Esterase Neg (Negative) 07/07/18 15:47 Urine WBC (Auto) < 1.0 /HPF (0.0-6.0) 07/07/18 15:47 Urine RBC (Auto) 11.0 /HPF (0.0-6.0) 07/07/18 15:47 U Epithel Cells (Auto) < 1.0 /HPF (0-13.0) 07/07/18 15:47 Active Medications - Current Medications Current Medications: Generic Name Dose Route Start Last Admin Trade Name Freq PRN Reason Stop Dose Admin Albuterol 2.5 mg 07/08/18 12:40 07/08/18 21:14 Proventil IH 2.5 mg Q6HRT PRN Administration Shortness Of Breath Enoxaparin Sodium 40 mg 07/07/18 22:00 07/08/18 21:11 Lovenox SUB-Q 40 mg QDAY@2200 NEVA Administration Hydralazine HCl 10 mg 07/07/18 21:26 07/07/18 21:35 Apresoline IV 10 mg Q4HR PRN Administration Blood Pressure Sodium Chloride 1,000 mls @ 125 mls/hr 07/08/18 13:00 07/09/18 09:34 Nacl 0.45% 1000 Ml IV 125 mls/hr DIRECT NEVA Administration Azithromycin 500 mg/ Sodium 250 mls @ 250 mls/hr 07/08/18 15:00 07/08/18 15:39 Chloride IV Not Given Q24HR NEVA Ceftriaxone Sodium 1 gm in 50 mls @ 100 mls/hr 07/08/18 15:00 07/09/18 09:33 Rocephin/Ns 1 Gm/50 Ml IV 100 mls/hr Q24HR NEVA Administration Protocol Methylprednisolone Sodium Succinate 40 mg 07/08/18 13:00 07/09/18 09:34 Solu-Medrol IV 40 mg BID NEVA Administration Ondansetron HCl 4 mg 07/08/18 12:20 07/09/18 06:55 Zofran IV 4 mg Q4H PRN Administration Nausea And Vomiting Sodium Chloride 10 ml 07/07/18 22:00 07/09/18 09:39 Sodium Chloride Flush Syringe 10 Ml IV 10 ml BID NEVA Administration Sodium Chloride 10 ml 07/07/18 18:04 Sodium Chloride Flush Syringe 10 Ml IV PRN PRN LINE FLUSH Nutrition/Malnutrition Assess - Dietary Evaluation Nutrition/Malnutrition Findings: Nutrition Notes Start: 07/08/18 10:28 Freq: Status: Active Protocol: Document 07/08/18 10:28 EB (Rec: 07/08/18 10:35 EB [id number]) Co-Sign 07/08/18 10:28 LP Nutrition Notes 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 Pt resting in bed at time of visit and complains of being thirsty and hungry. Pt brought to [facility] yesterday for procedure and starting vomiting while here. Since then has had N/V x7. 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 Percent of energy/protein needs met: 0%/0% Burn Absent Trauma Absent GI Symptoms Nausea,Vomiting Current % PO Negligible #1 Nutrition Diagnosis Inadequate oral intake Etiology NPO As Evidenced by Signs and Symptoms N/V x7 yesterday Is patient on ventilator? No Is Patient Ambulatory and/or Out of Bed Yes REE-([facility]-ambulatory/OOB) [ 1350.999 NUTR.MSJOOB] Kcal/Kg value to use for calculation 25 Approximate Energy Requirements Using 1588 kcal/Kg Calculation Used for Recommendations Kcal/kg Additional Notes PRO: 1-1.2 g/kg (64-77 g/day) Fluid: 1 mL/kcal Nutrition Intervention Change Diet Order: Cl liq when NPO status lifted Goal #1 Advance diet when medically feasible Goal #2 Meet at least 75% jose and pro needs Anticipated Discharge Needs: Unable to determine at this time Follow-Up By: 07/11/18 Additional Comments F/u: diet tolerance and advancement
--- NOTE | 2018-07-09 10:30 | Cat Scan Report ---
EXAM: CT ANGIO CHEST HISTORY: GG opacities seen on xray TECHNIQUE: Spiral axial CT images with sagittal and coronal reformatted images are obtained through the chest with the administration of intravenous contrast. DOSIMETRY: Total DLP: 454.4 mGycm COMPARISON: None available. FINDINGS: CARDIOVASCULAR: There is no evidence for pulmonary embolic disease. There is a left anterior chest wa ll subclavian cardiac pacer with intact pacer wires to the right atrium and right ventricle. The hear t size and mediastinal vascular structures are within normal limits. There is no significant aortic or coronary atherosclerosis seen. No thoracic aortic aneurysm or dissection is noted. MEDIASTINUM AND ZARINA: No mass lesion, lymphadenopathy, emphysema, or abnormal fluid collection is see n. LUNGS: There are small bilateral pleural effusions. There is mild increased opacity in the posterior/ dependent lower lobes in keeping with mild atelectasis and/or congestive changes. There is no acute p arenchymal infiltrate, lung nodule, endobronchial obstructing lesion or pneumothorax seen. CHEST WALL: There are no chest wall lesions seen. There is severe DDD at T12/L1, marked by severe dis c space narrowing, endplate sclerosis, and anterior and posterior marginal osteophytosis, contributin g to moderately severe spinal canal stenosis with potential for neural impingements. The visualized b kennedy structures are within normal limits. No axillary lymphadenopathy is noted. UPPER ABDOMEN: Limited views through the upper abdomen demonstrate no gross acute abnormality. Small calcified granulomas are seen in the spleen and liver. IMPRESSION: 1. Small bilateral pleural effusions. 2. Mild increased opacity in the posterior/dependent lower lobes in keeping with mild atelectasis a nd/or congestive changes. 3. No evidence for PE, aortic aneurysm or aortic dissection. 4. No acute parenchymal infiltrate, pleural effusion, endobronchial obstructing lesion or pneumothor ax seen. This document is electronically signed by Chantal Wadsworth MD., July 09 2018 10:27:51 AM ET
[2018-07-09] MEDS: ZITHROMAX 500 MG in NACL 0.9% 250ML 250 ML IV SCH (11:08)
[2018-07-09] MEDS ORDERED: NORCO 5/325 PO SCH (12:00)
[2018-07-09] MEDS: PROTONIX PO SCH (14:59)
--- NOTE | 2018-07-09 15:55 | Gastroenterology Consultation ---
History of Present Illness - Reason for Consult Consult date: 07/09/18 abdominal pain Requesting physician: HENRY BLANCHARD - History of Present Illness This is a 88 yo female with pmh of HTN, osteosarcoma, cardiomyopathy s/p pacemaker, and HLD admitted for abdominal pain and lethargy. GI consulted for abdominal pain. She was here on the day of admission to see her and became diaphoretic, weak, and started to have multiple episodes of NBNB emesis and epigastric abdominal pain. She was found to have SIRS, acidosis, and acute respiratory failure 2/2 COPD exacerbation. Work up so far with CT abdomen/pelvis showed possible mesenteric adenitis in the upper abdomen. She states she had large pizza prior to her symptoms and was having more frequent nonbloody stools at home. Since admission, she had vomiting yesterday but her abdominal pain has improved. No vomiting today and no stools since admission. She has h/o occasional upset stomach with certain foods. Past History Past Medical History: cancer, hypertension, hyperlipidemia, other (Cardiomyopathy) Past Surgical History: hysterectomy, Other (pacemaker) Social history: , lives with family. denies: smoking, alcohol abuse, prescription drug abuse Family history: hypertension Medications and Allergies Allergies Allergy/AdvReac Type Severity Reaction Status Date / Time No Known Allergies Allergy Verified 07/07/18 13:03 Home Medications Medication Instructions Recorded Confirmed Last Taken Type AtorvaSTATin [Lipitor] 10 mg PO QHS 07/09/18 07/09/18 07/06/18 22:00 History Carvedilol 6.25 mg PO BID 07/09/18 07/09/18 07/06/18 09:00 History Clopidogrel [Plavix] 75 mg PO QDAY 07/09/18 07/09/18 07/06/18 09:00 History Enalapril Maleate [Vasotec] 5 mg PO DAILY 07/09/18 07/09/18 07/06/18 09:00 History Furosemide [Lasix] 20 mg PO DAILY 07/09/18 07/09/18 07/06/18 09:00 History HYDROcodone/ACETAMINOPHEN 1 - 2 tab PO PRN 07/09/18 07/09/18 Unknown History [Hydrocodone-Acetamin 5-325 mg] Active Meds: Active Medications Acetaminophen/Hydrocodone Bitart ([place] 5/325) 2 each PO PRN NEVA Albuterol (Proventil) 2.5 mg IH Q6HRT PRN PRN Reason: Shortness Of Breath Last Admin: 07/08/18 21:14 Dose: 2.5 mg Documented by: Atorvastatin Calcium (Lipitor) 10 mg PO QHS [facility] Carvedilol (Coreg) 6.25 mg PO BID [facility] Clopidogrel Bisulfate (Plavix) 75 mg PO QDAY [facility] Enoxaparin Sodium (Lovenox) 40 mg SUB-Q QDAY@2200 [facility] Last Admin: 07/08/18 21:11 Dose: 40 mg Documented by: Furosemide (Lasix) 20 mg PO DAILY [facility] Hydralazine HCl (Apresoline) 10 mg IV Q4HR PRN PRN Reason: Blood Pressure Last Admin: 07/07/18 21:35 Dose: 10 mg Documented by: Azithromycin 500 mg/ Sodium (Chloride) 250 mls @ 250 mls/hr IV Q24HR [facility] Last Admin: 07/09/18 11:08 Dose: 250 mls/hr Documented by: Ceftriaxone Sodium (Rocephin/Ns 1 Gm/50 Ml) 1 gm in 50 mls @ 100 mls/hr IV Q24HR [facility]; Protocol Last Admin: 07/09/18 09:33 Dose: 100 mls/hr Documented by: Lisinopril (Zestril) 5 mg PO QDAY [facility] Methylprednisolone Sodium Succinate (Solu-Medrol) 40 mg IV BID [facility] Last Admin: 07/09/18 09:34 Dose: 40 mg Documented by: Ondansetron HCl (Zofran) 4 mg IV Q4H PRN PRN Reason: Nausea And Vomiting Last Admin: 07/09/18 06:55 Dose: 4 mg Documented by: Pantoprazole Sodium (Protonix) 40 mg PO QDAY [facility] Sodium Chloride (Sodium Chloride Flush Syringe 10 Ml) 10 ml IV BID [facility] Last Admin: 07/09/18 09:39 Dose: 10 ml Documented by: Sodium Chloride (Sodium Chloride Flush Syringe 10 Ml) 10 ml IV PRN PRN PRN Reason: LINE FLUSH Review of Systems - Review of Systems All systems: negative Constitutional: chills, fatigue, weakness, poor appetite, no weight loss, no weight gain Eyes: deferred Ears, Nose, Throat: deferred Cardiovascular: no chest pain, no shortness of breath Gastrointestinal: abdominal pain, nausea, vomiting, diarrhea, change in bowel habits, heartburn, indigestion, no hematemesis, no coffee ground emesis, no melena Integumentary: deferred Psychiatric: no memory loss Hematologic/Lymphatic: no easy bruising Allergic/Immunologic: no wheezing Exam - Constitutional Vital Signs: Temp Pulse Resp BP Pulse Ox 99.0 F 76 13 132/63 100 07/09/18 12:00 07/09/18 10:20 07/09/18 10:20 07/09/18 10:20 07/09/18 10:20 General appearance: no acute distress, well-nourished - EENT Eyes: EOM intact ENT: hearing intact, clear oral mucosa, dentition normal - Neck Neck: supple, normal ROM, no masses or JVD - Respiratory Respiratory effort: normal Respiratory: bilateral: CTA - Breasts Breasts: deferred - Cardiovascular Rhythm: regular Heart Sounds: Present: S1 & S2. Absent: gallop, rub Extremities: pulses intact, No edema, normal color, Full ROM - Gastrointestinal General gastrointestinal: Present: soft, non-tender, non-distended, normal bowel sounds - Integumentary Integumentary: Present: clear, warm, dry - Neurologic Neurological: alert and oriented x3 - Psychiatric Psychiatric: appropriate mood/affect, intact judgment & insight, memory intact - Labs CBC & Chem 7: 07/07/18 13:39 07/07/18 13:39 Assessment and Plan # Abdominal pain # Nausea/vomiting - acute onset prior to her admission along with more frequent stools and diaphoresis. - suspect viral illness/infectious gastroenteritis. - CT findings of possible mesenteric adenitis. - clinically improving and tolerating current diet. Abdominal pain improving. - currently on empiric antibiotics for sepsis and COPD exacerbation. rec: - monitor clinically. - continue with antibiotics. - if develop diarrhea, recommend stool studies. But no stool since admission per patient. - will follow. - Patient Problems (1) Nausea and vomiting Current Visit: Yes Status: Acute
--- NOTE | 2018-07-09 18:41 | XRay Report ---
PROCEDURE: XR CHEST 1V AP TECHNIQUE: Single radiograph of the chest obtained. HISTORY: lung infiltrates? COMPARISONS: CT chest of 07/08/2018. FINDINGS: Left-sided AICD/pacemaker noted. Heart is normal in size. Small bilateral pleural effusions. No pneum othorax visualized. IMPRESSION: Small bilateral pleural effusions.. This document is electronically signed by Cate Hector MD., July 09 2018 06:39:07 PM ET
[2018-07-09] MEDS ORDERED: NON-FORMULARY (Carvedilol 6.25 MG) PO SCH (22:00)
[2018-07-09] MEDS: COREG PO SCH (22:42)
[2018-07-09] MEDS: LOVENOX SUB-Q SCH (22:43)
--- NOTE | 2018-07-10 08:24 | Event Note ---
Date: 07/09/18 [id number]
--- NOTE | 2018-07-10 09:33 | Discharge Summary ---
Providers - Providers Date of Admission: 07/07/18 18:05 Attending physician: HENRY BLANCHARD MD 07/07/18 18:06 Consult to Physician [CONS] Routine Comment: Consulting Provider: BURAK HOUSTON Physician Instructions: Reason For Exam: lymphona/osteosarcoma 07/09/18 11:28 Consult to Dietitian/Nutrition [CONS] Routine Physician Instructions: Reason For Exam: Reason for Consult: Malnutrition 07/09/18 11:29 Consult to Physician [CONS] Routine Comment: Consulting Provider: TYREE TIERNEY Physician Instructions: Reason For Exam: gastric ulcers, abdominal pain Primary care physician: DIRECTOR DERMATOLOGY Hospitalization Condition: Fair Hospital course: 88F who pw n/v and abdo cramps, also complaining of shortness of breath oncologist is Dr Mercedes at [facility] Past medical history of bone cancer in remission, htn, sp v-PM, HLD Labs; white count 13 lactic acid 2.1, repeats after IV fluids 1.4, BNP 4000 and, d-dimer 491, ABG shows a PCO2 of 48, UA negative CT A/P; GG nodular densities in lower lobes of lungs, mesenteric adenitis is suspected in upper abdomen, repeat CXR; RLL infiltrate Hospital course * She was admitted to the hospital, she received IV fluids and antiemetics. She self-reported history of peptic ulcers, was complaining of abdominal pain. She was treated with PPI. * Her diet was advanced, the patient improved, has symptoms are most likely due to acute gastritis, likely viral in origin * Pneumonia was ruled out with serial imaging, d-dimer was elevated therefore she had CT angiogram and venous Dopplers that were negative for PE and DVT respectively * She was treated with steroids and nebulizers and antibiotics, she clinically improved Diagnoses Acute gastritis Intractable nausea and vomiting and abdominal pain Atrial fibrillation status post pacemaker Acute metabolic encephalopathy CHF? fup echo copd flare Disposition: - TO HOME OR SELFCARE Time spent for discharge: 33 mins Core Measure Documentation - Palliative Care Palliative Care/ Comfort Measures: Not Applicable - Core Measures Any of the following diagnoses?: none Exam - Constitutional Vitals: Temp Pulse Resp BP Pulse Ox 97.6 F 84 19 156/81 98 07/10/18 07:00 07/10/18 09:00 07/10/18 09:00 07/10/18 09:00 07/10/18 09:00 General appearance: Present: no acute distress, well-nourished - EENT Eyes: Present: PERRL ENT: hearing intact, clear oral mucosa - Neck Neck: Present: supple, normal ROM - Respiratory Respiratory effort: normal Respiratory: bilateral: CTA - Cardiovascular Heart Sounds: Present: S1 & S2. Absent: rub, click - Extremities Extremities: pulses symmetrical, No edema Peripheral Pulses: within normal limits - Abdominal General gastrointestinal: Present: soft, non-tender, non-distended, normal bowel sounds Female genitourinary: Present: normal - Integumentary Integumentary: Present: clear, warm, dry - Musculoskeletal Musculoskeletal: gait normal, strength equal bilaterally - Psychiatric Psychiatric: appropriate mood/affect, intact judgment & insight - Neurologic Neurologic: CNII-XII intact, moves all extremities Plan Follow up with: PRIMARY CARE,MD [Primary Care Provider] - 3-5 Days Prescriptions: Azithromycin 250 mg PO DAILY #2 tablet HYDROcodone/ACETAMINOPHEN [Hydrocodone-Acetamin 5-325 mg] 1 - 2 tab PO PRN #14 tablet Prednisone [predniSONE 5 mg (6-Day Pack, 21 Tabs)] 5 mg PO .TAPER #1 tab.ds.pk Pantoprazole [Protonix TAB] 40 mg PO QDAY #30 tablet Ondansetron [Zofran Odt] 4 mg PO Q8HR PRN #30 tab.rapdis PRN Reason: Nausea
[2018-07-10] MEDS ORDERED: PLAVIX PO SCH (10:00)
[2018-07-10] MEDS ORDERED: ENALAPRIL MALEATE 5 MG PO SCH (10:00)
[2018-07-10] MEDS ORDERED: ZESTRIL PO SCH (10:00)
[2018-07-10] MEDS ORDERED: LASIX PO SCH (10:00)
[2018-07-10] MEDS: ZITHROMAX 500 MG in NACL 0.9% 250ML 250 ML IV SCH (10:25)
[2018-07-10] MEDS: ROCEPHIN/NS 1 GM/50 ML 1 GM/50 ML BAG IV SCH (10:29)
[2018-07-10] MEDS: SOLU-Medrol IV SCH (10:29)
[2018-07-10] MEDS: COREG PO SCH (10:31)
[2018-07-10] MEDS: PROTONIX PO SCH (10:31)
[2018-07-10] MEDS: SODIUM CHLORIDE FLUSH SYRINGE 10 ML IV SCH (10:32)
[2018-07-10 12:26] VITALS: BP 123/74
--- NOTE | 2018-07-10 12:36 | Gastroenterology Progress Note ---
Assessment and Plan Pain improving, no indication for endoscopy from clinical exam and labs/imaging. May continue supportive care and from GI standpoint may discharge and she may just follow up as needed as an outpatient. We will sign off, please call for any questions. - Patient Problems (1) Abdominal pain Current Visit: Yes Status: Acute Subjective Date of service: 07/10/18 Principal diagnosis: abd pain Interval history: She reports her abd pain continues to improve, just mild soreness of the abd, otherwise feeling improved Objective - Constitutional Vitals: Temp Pulse Resp BP Pulse Ox 97.8 F 81 23 123/74 91 07/10/18 11:00 07/10/18 12:20 07/10/18 12:20 07/10/18 12:20 07/10/18 12:20 General appearance: no acute distress - EENT ENT: hearing intact - Respiratory Respiratory effort: normal - Gastrointestinal General gastrointestinal: Present: soft, non-tender - Labs CBC & Chem 7: 07/07/18 13:39 07/07/18 13:39
--- NOTE | 2018-07-10 14:01 | Hem/Onc Progress Note ---
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 Mercedes at [facility]; history of hypertension; history of hyperlipidemia; and lymph nodes in the abdomen. The patient would need outpatient followup. It is not clear if these lymph nodes are new. The details also of her bone cancer is not clear. The patient says she was diagnosed as bone cancer many years ago with multiple recurrences and needing xrt and chemotherapy. If she remains in the hospital for long, we will contact Dr. Mercedes for information. Otherwise, she will get discharged and follow up with Dr. Mercedes for the abdo LNs. - Patient Problems (1) Lymphadenopathy Status: Acute Subjective Date of service: 07/10/18 Objective - Constitutional Vitals: Last Vital Signs Temp 97.8 F 07/10/18 12:00 Pulse 81 07/10/18 12:20 Resp 23 07/10/18 12:20 BP 123/74 07/10/18 12:20 Pulse Ox 91 07/10/18 12:20 Pain Intensity (0-10): denies any pain General appearance: no acute distress Performance status: 3-limited selfcare - EENT Eyes: EOM intact ENT: clear oral mucosa Lymph node exam: negative cervical - Neck Neck: normal ROM - Respiratory Respiratory effort: Positive: normal Respiratory: bilateral: CTA - Cardiovascular Heart Sounds: Present: S1 & S2 Extremities: No edema - Gastrointestinal General gastrointestinal: Present: soft, non-tender Rectal Exam: deferred - Genitourinary Female genitourinary: Present: deferred - Integumentary Integumentary: warm - Musculoskeletal Musculoskeletal: generalized weakness - Neurologic Neurologic: moves all extremities Medications & Allergies - Medications Allergies/Adverse Reactions: Allergies No Known Allergies Allergy (Verified 07/07/18 13:03) Home Medications: Home Medications Medication Instructions Recorded Confirmed Last Taken Type AtorvaSTATin [Lipitor] 10 mg PO QHS 07/09/18 07/09/18 07/06/18 22:00 History Carvedilol 6.25 mg PO BID 07/09/18 07/09/18 07/06/18 09:00 History Clopidogrel [Plavix] 75 mg PO QDAY 07/09/18 07/09/18 07/06/18 09:00 History Enalapril Maleate [Vasotec] 5 mg PO DAILY 07/09/18 07/09/1819 09:00 History Furosemide [Lasix] 20 mg PO DAILY 07/09/18 07/09/18 07/06/18 09:00 History Azithromycin 250 mg PO DAILY #2 tablet 07/10/18 Unknown Rx HYDROcodone/ACETAMINOPHEN 1 - 2 tab PO PRN #14 tablet 07/10/18 Unknown Rx [Hydrocodone-Acetamin 5-325 mg] Ondansetron [Zofran Odt] 4 mg PO Q8HR PRN #30 tab.rapdis 07/10/18 Unknown Rx Pantoprazole [Protonix TAB] 40 mg PO QDAY #30 tablet 07/10/18 Unknown Rx Prednisone [predniSONE 5 mg (6-Day 5 mg PO .TAPER #1 tab.ds.pk 07/10/18 Unknown Rx Pack, 21 Tabs)] Active Medications: Generic Name Dose Route Start Last Admin Trade Name Freq PRN Reason Stop Dose Admin Acetaminophen/Hydrocodone Bitart 2 each 07/09/18 12:00 07/09/18 22:42 [place] 5/325 PO 2 each PRN NEVA Administration Albuterol 2.5 mg 07/08/18 12:40 07/08/18 21:14 Proventil IH 2.5 mg Q6HRT PRN Administration Shortness Of Breath Atorvastatin Calcium 10 mg 07/09/18 22:00 07/09/18 22:42 Lipitor PO 10 mg QHS NEVA Administration Carvedilol 6.25 mg 07/09/18 22:00 07/10/18 10:31 Coreg PO 6.25 mg BID NEVA Administration Clopidogrel Bisulfate 75 mg 07/10/18 10:00 07/10/18 10:31 Plavix PO 75 mg QDAY NEVA Administration Enoxaparin Sodium 40 mg 07/07/18 22:00 07/09/18 22:43 Lovenox SUB-Q 40 mg QDAY@2200 NEVA Administration Furosemide 20 mg 07/10/18 10:00 07/10/18 10:31 Lasix PO 20 mg DAILY NEVA Administration Hydralazine HCl 10 mg 07/07/18 21:26 07/07/18 21:35 Apresoline IV 10 mg Q4HR PRN Administration Blood Pressure Azithromycin 500 mg/ Sodium 250 mls @ 250 mls/hr 07/08/18 15:00 07/10/18 10:25 Chloride IV 250 mls/hr Q24HR NEVA Administration Ceftriaxone Sodium 1 gm in 50 mls @ 100 mls/hr 07/08/18 15:00 07/10/18 10:29 Rocephin/Ns 1 Gm/50 Ml IV 100 mls/hr Q24HR NEVA Administration Protocol Lisinopril 5 mg 07/10/18 10:00 07/10/18 10:31 Zestril PO 5 mg QDAY NEVA Administration Methylprednisolone Sodium Succinate 40 mg 07/08/18 13:00 07/10/18 10:29 Solu-Medrol IV 40 mg BID NEVA Administration Ondansetron HCl 4 mg 07/08/18 12:20 07/09/18 06:55 Zofran IV 4 mg Q4H PRN Administration Nausea And Vomiting Pantoprazole Sodium 40 mg 07/09/18 14:00 07/10/18 10:31 Protonix PO 40 mg QDAY NEVA Administration Sodium Chloride 10 ml 07/07/18 22:00 07/10/18 10:32 Sodium Chloride Flush Syringe 10 Ml IV 10 ml BID NEVA Administration Sodium Chloride 10 ml 07/07/18 18:04 Sodium Chloride Flush Syringe 10 Ml IV PRN PRN LINE FLUSH
[2018-07-10] MEDS ORDERED: ZOFRAN ODT PO PRN (17:00)
--- NOTE | 2018-07-11 00:58 | Consultation ---
REFERRING PHYSICIAN: Dr. Valladares. REASON FOR CONSULTATION: History of osteosarcoma, has question of lymphadenopathy in the abdomen. HISTORY OF PRESENT ILLNESS: I saw the patient, an 88-year-old female, in the medical floor. The patient follows Dr. Adrian Mercedes, who is the oncologist. The patient says she was diagnosed with osteosarcoma. The details of this is not clear. The patient says first behind the eye, the neck, and then other parts of her body. She has had multiple treatments for same. She says chemotherapy and radiation. This first occurred more than 5 years ago and then has had two relapses. Details of this is not clear. The patient also has history of hyperlipidemia, cardiomyopathy, status post pacemaker. She came to the hospital as her was having a colonoscopy, but became lethargic and had nausea and vomiting. The patient was in [facility] during this admission. CT abdomen and pelvis was done on 07/07/2018 that showed nonspecific subcentimeter lymph node in the retroperitoneum. I have been asked to evaluate the patient for this. At this time, the patient is better. No headache, no visual disturbances, no ear discharge, no chest pain, no palpitations, no abdominal pain. PAST MEDICAL HISTORY: Includes question of osteosarcoma, hypertension, hyperlipidemia, and cardiomyopathy. PAST SURGICAL HISTORY: Hysterectomy, pacemaker. SOCIAL HISTORY: , lives with family members. FAMILY HISTORY: Hypertension. ALLERGIES: None. MEDICATIONS: Include Protonix, Solu-Medrol, lisinopril, hydralazine, Lasix, Lovenox, Plavix, ceftriaxone, Zithromax, atorvastatin. PHYSICAL EXAMINATION: VITAL SIGNS: Temperature 98, pulse 89, respirations 25, BP 148/106. HEENT: No pallor, no icterus. NECK: No neck lymph nodes. HEART: S1, S2. LUNGS: Clear to auscultation anteriorly. ABDOMEN: Soft. EXTREMITIES: No calf tenderness. LABORATORY DATA: White cells 13, hemoglobin 12, MCV 89, platelets 196. Creatinine 0.9, potassium 4.6, calcium 9.3, bilirubin 0.4. During this admission, the patient has been seen by GI team. 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 Mercedes at [facility]; history of hypertension; history of hyperlipidemia; and lymph nodes in the abdomen. The patient would need outpatient followup. It is not clear if these lymph nodes are new. The details also of her bone cancer is not clear. The patient says it was diagnosed many years ago with multiple recurrences and needing additional chemotherapy. If she remains in the hospital for long, we will contact Dr. Mercedes for information. Otherwise, she will get discharged and follow up with Dr. Mercedes. JOB# [id number] NM/NTS
== END 2018-07-10 17:29 | disposition home or self-care (01) | DRG 70 ==
LOC: ED 13:01 → IMCU 18:05
PROVIDERS: ADMIT Internal Medicine; ATTEND Internal Medicine
PROC: 5A09357 Assistance with Respiratory Ventilation, Less than 24 Consecutive Hours, Continuous Positive Airway Pressure (ICD-10-PCS; principal; 2018-07-07)
PROC: 4A033R1 Measurement of Arterial Saturation, Peripheral, Percutaneous Approach (ICD-10-PCS; 2018-07-07)
DX: G93.41 Metabolic encephalopathy (principal); J96.01 Acute respiratory failure with hypoxia; E87.2 Acidosis; J44.1 Chronic obstructive pulmonary disease with (acute) exacerbation; I42.9 Cardiomyopathy, unspecified; C41.9 Malignant neoplasm of bone and articular cartilage, unspecified; R65.10 Systemic inflammatory response syndrome (SIRS) of non-infectious origin without acute organ dysfunction; A08.4 Viral intestinal infection, unspecified; I48.91 Unspecified atrial fibrillation; I50.9 Heart failure, unspecified; I11.0 Hypertensive heart disease with heart failure; R59.0 Localized enlarged lymph nodes; E78.5 Hyperlipidemia, unspecified; Z85.830 Personal history of malignant neoplasm of bone; Z95.0 Presence of cardiac pacemaker; Z90.710 Acquired absence of both cervix and uterus; Z82.49 Family history of ischemic heart disease and other diseases of the circulatory system; Z92.21 Personal history of antineoplastic chemotherapy; Z92.3 Personal history of irradiation
CPT/HCPCS: 36415; 36600; 70450; 71045; 71275; 74177; 80053; 81001; 82140; 82550; 82803; 83690; 83735; 83880; 84439; 84443; 84484; 85007; 85025; 85379; 87040; 93005; 93010; 93306; 93970; 94640; 96361; 96365; 96375; G0378; A9270-GY; J0360; J0456; J0696; J1650; J1940; J1956; J2405; J2930; J7030; J7050; Q0162; Q9967